=== PATIENT | female | born 1950 | race Caucasian/White ===

== ENCOUNTER 2023-06-28 12:46 | Emergency (ER) | payer MEDICARE, SELFPAY ==
[2023-06-28 12:57] VITALS: BP 140/97
[2023-06-28 13:11] LABS: % Basophils 0.8 % (0-2); % Eosinophils 2.5 % (0-6); % Immature Granulocytes 0.1 % (0-0.5); % Lymphocytes 26.5 % (20.5-51.1); % Monocytes 6.5 % (1.7-9.3); % Neutrophils 63.6 % (42.2-75.2); Absolute Basophils 0.1 10^3/uL (0-0.2); Absolute Eosinophils 0.2 10^3/uL (0-0.7); Absolute Monocytes 0.5 10^3/uL (0.1-0.6); Absolute Neutrophils 4.9 10^3/uL (1.4-6.5); Hematocrit 39.3 % (37.0-47.0); Hemoglobin 13.8 g/dL (12.0-16.0); Mean Corp Hgb Conc. 35.1 g/dL (33.0-37.0); Mean Corpuscular Hgb 30.6 pg (27.0-31.0); Mean Corpuscular Volume 87.1 fL (81.0-99.0); Mean Platelet Volume 9.2 fL (7.4-10.4); Nucleated Red Blood Cells % 0 %; Platelet Count 321 10^3/uL (130-400); Red Blood Cell Count 4.51 10^6/uL (4.20-5.40); Red Cell Dist. Width 13.2 % (11.5-14.5); White Blood Cell Count 7.7 10^3/uL (4.8-10.8)
[2023-06-28 13:12] LABS: Urine Albumin Negative (Neg - Trace); Urine Bilirubin Negative (Negative); Urine Character Clear (Clear); Urine Color Yellow; Urine Glucose Negative (Negative); Urine Ketone Negative (Negative); Urine Leukocyte 2+ (Negative); Urine Nitrite Negative (Negative); Urine Occult Blood 1+ (Negative); Urine Urobilinogen Negative (Neg - 1+)
[2023-06-28 13:28] LABS: Urine Mucus Moderate; Urine Squamous Cell >30 /LPF (Few)
[2023-06-28 13:29] LABS: Urine Urothelial Cell 16-20 /LPF (FEW)
[2023-06-28 13:30] LABS: Urine Bacteria Few (Negative)
[2023-06-28 13:39] LABS: ALT (SGPT) 33 U/L (0-35); AST (SGOT) 31 U/L (14-36); Albumin 5.1 g/dl (3.5-5.0); Alkaline Phosphatase 68 U/L (38-126); Blood Urea Nitrogen 24 mg/dl (7-17); Calcium 9.6 mg/dl (8.4-10.2); Carbon Dioxide 27 mmol/L (22-30); Chloride 103 mmol/L (98-107); Glucose 106 mg/dl (70-99); Lipase 110 U/L (23-300); Potassium 4.2 mmol/L (3.5-5.1); Sodium 137 mmol/L (135-145); Total Bilirubin 0.7 mg/dl (0.2-1.3); Total Protein 7.7 g/dl (6.3-8.2); eGFR > 60.00
--- NOTE | 2023-06-28 14:16 | ED.GENMED ---
History of Present Illness
<Gabby Escobar PA-C - Last Filed: 06/28/23 19:56>
General
Chief Complaint: Abdominal Pain
Source: patient and family
Exam Limitations: none
Time Seen by Provider: 06/28/23 14:09
Nursing documentation reviewed up to this point in time: agreed with
Travel History
Have you had any contact with someone who has COVID-19?: No
Do you have any symptoms of coronavirus? Fever > 100 degrees, chills, cough, shortness of breath, sore throat, loss of taste or smell, muscle aches, or headache?: No
History of Present Illness
History of Present Illness:
72-year-old female with a past medical history of hypertension, hyperlipidemia, presenting emergency department today with right-sided groin pain for the past 4 days. Patient states that while it started randomly. She states that the pain is
intermittent and feels like a pressure, and radiates down the right leg. She denies any numbness and tingling in the leg. Patient states that the pain is not worse with any movement of his right. Patient states is there is nothing particular that
makes the pain worse. Patient states that she has never had anything like this before. Patient states that she does have a history of tight hip flexors however she states that this feels different. Patient denies nausea, vomiting, headaches,
chest pain, shortness of breath, diarrhea. Patient denies any sick contacts. Patient denies any recent travel. Patient denies any history of kidney stones. Other than D&C in the past, patient has not had any other abdominal surgeries. Patient
denies any changes to her urinary habits.
Review of Systems
<Gabby Escobar PA-C - Last Filed: 06/28/23 19:56>
Review of Systems
All Other Systems: ROS reviewed and negative except as documented in HPI and ROS
Phy Exam
<Gabby Escobar PA-C - Last Filed: 06/28/23 19:56>
Physical Exam
Physical Exam:
Vitals: Vital signs are stable, patient is afebrile
General: Patient is well-appearing and in no acute distress
Skin: Skin is warm dry, no rashes or lesions
Cardiac: regular rate and rhythm, no murmurs
Pulm: normal respiratory effort, no wheezes, rales, or rhonchi
Abdomen: no abdominal distention, no organomegaly. mild tenderness to palpation in the RLQ extending into the right groin. No palpable lymphadenopathy, no obvious swelling.
Musculoskeletal: patient has full ROM of b/l hip and knee joints. passive range of right hip does not cause pain.
Neuro: AAOx3.
Course
<Gabby Escobar PA-C - Last Filed: 06/28/23 19:56>
Orders/Labs/Results
Orders:
Orders
06/28/23 13:06
Complete Blood Count/With Diff Urgent
Comprehensive Metabolic Panel Urgent
Lipase Urgent
Urinalysis Reflex To Culture Urgent
Date Specimen was Collected: 06/28/23
Time Specimen was Collected: 13:00
Urine Microscopic Reflex Cult Urgent
Urine Culture Urgent
ROSALINDA Source: U
Specimen Description:
Date Specimen was Collected: 06/28/23
Time Specimen was Collected: 13:00
06/28/23 14:54
CT Abd/pel Without Iv Or Oral Urgent
Comment:
Reason For Exam: right sided groin pain
06/28/23 16:46
Transvaginal US [US Pelvis W Transvag Combined] Urgent
Comment:
Reason For Exam: right ovarian mass seen on CT today
06/28/23 16:48
Ketorolac [Toradol] 15 mg IV NOW STA
06/28/23 16:50
Ibuprofen [Motrin] 400 mg PO NOW STA
06/28/23 19:14
Acetaminophen [Tylenol] 650 mg PO NOW STA
Abnormal Lab Results
06/28/23
13:06
BUN 24 H mg/dl
(7-17)
Glucose 106 H mg/dl
(70-99)
Albumin 5.1 H g/dl
(3.5-5.0)
Ur Occult Blood Reflex 1+ A
(Negative)
Leukocyte Esterase Rfl 2+ A
(Negative)
Urine RBC 3-6 A /HPF
(0-2)
Urine Bacteria (Reflex) Few A
(Negative)
06/28/23 13:06
06/28/23 13:06
Vital Signs
Initial and Last Documented VS:
Initial Vital Signs
Temp Pulse Resp BP Pulse Ox
97.7 F 101 17 140/97 97
06/28/23 12:57 06/28/23 12:57 06/28/23 12:57 06/28/23 12:57 06/28/23 12:57
Last Documented Vital Signs
Temp Pulse Resp BP Pulse Ox
98.1 F 66 16 116/77 99
06/28/23 19:08 06/28/23 19:08 06/28/23 19:08 06/28/23 19:08 06/28/23 19:08
<Rojelio Brady MD - Last Filed: 06/29/23 15:03>
Orders/Labs/Results
Orders:
Orders
06/28/23 13:06
Complete Blood Count/With Diff Urgent
Comprehensive Metabolic Panel Urgent
Lipase Urgent
Urinalysis Reflex To Culture Urgent
Date Specimen was Collected: 06/28/23
Time Specimen was Collected: 13:00
Urine Microscopic Reflex Cult Urgent
Urine Culture Urgent
ROSALINDA Source: U
Specimen Description:
Date Specimen was Collected: 06/28/23
Time Specimen was Collected: 13:00
06/28/23 14:54
CT Abd/pel Without Iv Or Oral Urgent
Comment:
Reason For Exam: right sided groin pain
06/28/23 16:46
Transvaginal US [US Pelvis W Transvag Combined] Urgent
Comment:
Reason For Exam: right ovarian mass seen on CT today
06/28/23 16:48
Ketorolac [Toradol] 15 mg IV NOW STA
06/28/23 16:50
Ibuprofen [Motrin] 400 mg PO NOW STA
06/28/23 19:14
Acetaminophen [Tylenol] 650 mg PO NOW STA
Abnormal Lab Results
06/28/23
13:06
BUN 24 H mg/dl
(7-17)
Glucose 106 H mg/dl
(70-99)
Albumin 5.1 H g/dl
(3.5-5.0)
Ur Occult Blood Reflex 1+ A
(Negative)
Leukocyte Esterase Rfl 2+ A
(Negative)
Urine RBC 3-6 A /HPF
(0-2)
Urine Bacteria (Reflex) Few A
(Negative)
06/28/23 13:06
06/28/23 13:06
Vital Signs
Initial and Last Documented VS:
Initial Vital Signs
Temp Pulse Resp BP Pulse Ox
97.7 F 101 17 140/97 97
06/28/23 12:57 06/28/23 12:57 06/28/23 12:57 06/28/23 12:57 06/28/23 12:57
Last Documented Vital Signs
Temp Pulse Resp BP Pulse Ox
98.1 F 66 16 116/77 99
06/28/23 19:08 06/28/23 19:08 06/28/23 19:08 06/28/23 19:08 06/28/23 19:08
Geminilt;Gabby Escobar PA-C - Last Filed: 06/28/23 19:56>
MDM/Problems Addressed
Differential Diagnosis Includes:
ddx include IT band syndrome, meralgia paresthetica, musculoskeletal sprain/strain, appendicitis, inguinal hernia, ovarian mass
MDM/Problems Addressed:
right sided groin pain
Chronic conditions affecting care: HTN and Other (hyperlipidemia)
Acute Exacerbation and/or Progression of Chronic Illness: HTN
<Gabby Escobar PA-C - Last Filed: 06/28/23 19:56>
*Pulse Oximetry
Patient hypoxic: no
*Critical Care Note
Total Time (30-74mins, 75-104mins- exclusive of procedures): Not Applicable
Data Reviewed
Review of Other/Old Records Reveals: Records (no previous ER visits in [facility] to review )
Source: patient, records and family
Prescriptions/Medications Considered But Not Given:
considered medication for pain control but patient comfortable at this time
<Gabby Escobar PA-C - Last Filed: 06/28/23 19:56>
Patient Management
Escalation/DeEscalation of care consider admission/obs:
72-year-old female presenting to emergency department today with atraumatic right groin pain. Patient physical exam was remarkable for some mild tenderness to palpation in the right lower abdominal quadrant, right adnexal region. Here in emergency
department, her CBC and CMP are unremarkable. Her CT scan demonstrated a right ovarian mass, ultrasound was obtained to better describe the mass. Her ultrasound demonstrated a ovoid simple cystic mass arising from the right ovary, classified as
O-RADS 2 likely benign. Spoke to Dr. Irwin, director multimedia balance wheel motion inspector via tiger text, who is okay with outpatient follow up with her OBGYN with no acute intervention necessary. Patient has [facility] [employer] apt on july 16.
ED Attending Note
<Gabby Escobar PA-C - Last Filed: 06/28/23 19:56>
-
Portions of this chart may have been created with voice recognition software.� Occasional wrong word or��sound alike� substitutions may have occurred due to the inherent limitations of voice recognition software.
<Rojleio Brady MD - Last Filed: 06/29/23 15:03>
ED Attending Note
Patient seen and examined by attending physician: Yes
ED Attending Note:
Patient presents to ED secondary to intermittent right lower abdominal pain over the past 4 days. Patient has taken ibuprofen as well as warm compress application, with intermittent relief in symptoms. Denies fever or chills. Denies nausea,
vomiting, or diarrhea. Denies trauma. Denies recent change in level activities. Patient does report having chronic back pain, for which she participates in online yoga exercises.
Physical Exam
General: mild painful distress, not acutely ill. afebrile
Head: nc/at. eomi
Neck: supple. no meningeal signs.
Abdomen: normal bowel sounds. not tender. mild right groin tenderness to palpation. no distention.
Neuro: alert and oriented. no focal neurological deficits
Skin: no rash
Psychiatric: well kept. interactive and cooperative
Extremities: no edema. no calf tenderness
CT report reviewed. Will obtain pelvic US and reassess.
CT/pelvic US report discussed with oncall distance learning program coordinator physician, . Pt will f/u with her primary distance learning program coordinator physician as outpatient. No acute intervention advised at this time.
Discharge Plan
Departure
Patient Disposition: Home (Routine Discharge)
Date of Disposition: 06/28/23
Time of Disposition: 19:47
Patient with high blood pressure during this ER visit?: Yes
Condition: Good
Discharge Problem:
Ovarian mass, right
Instructions: Pelvic Pain (DC), BLOOD PRESSURE
Prescriptions:
No Action
multivitamin Tablet
1 tab PO DAILY
amlodipine 5 mg Tablet
5 mg PO DAILY
olmesartan 20 mg Tablet
20 mg PO DAILY
rosuvastatin [Crestor] 10 mg Tablet
10 mg PO DAILY
Probiotic 3 billion cell Capsule
3,000 mmu cells PO DAILY
Referrals:
Dawit Kumar MD [Family Provider] -
Activity Restrictions/Additional Instructions:
Please keep your OBGYN appointment on July 16 for follow up.
Please alternate Tylenol and Motrin for pain control. Continue use of your heating pad.
Please return to the emergency department for any concerns.
Interventions
Interventions:
*Risk Screen - Suicide Last Done: 06/28/23 12:59
*General Assessment Last Done: 06/28/23 12:59
*Neglect/Abuse Screening Last Done: 06/28/23 12:59
ED- Fall Risk Assessment Last Done: 06/28/23 18:26
*ED COVID-19 Vaccine History Last Done: 06/28/23 12:59
*Nursing Disposition Last Done: 06/28/23 20:14
PK-Nuspew-Jgonilhmfq Assessment Last Done: 06/28/23 19:08
Discharge Date and Time
Discharge Date/Time: 06/28/23 20:14
[2023-06-28] MEDS: MOTRIN 400 MG PO (16:54)
[2023-06-28 17:34] VITALS: BMI 25.3
[2023-06-28 18:26] VITALS: BP 136/81
[2023-06-28 19:08] VITALS: BP 116/77
[2023-06-28] MEDS: TYLENOL 650 MG PO (19:28)
== END 2023-06-28 20:14 | disposition home or self-care (01) ==
LOC: EMR 12:46
PROVIDERS: Emergency Medicine; EMERGENCY PHYSICIAN Emergency Medicine; FAMILY PHYSICIAN Family Medicine
DX: N83.291 Other ovarian cyst, right side (principal); E78.49 Other hyperlipidemia; I10 Essential (primary) hypertension
CPT/HCPCS: 99285; 74176; 76830; 76856; 80053; 81003; 81015; 83690; 85025; 87086

== ENCOUNTER → 2023-07-23 08:24 | Outpatient (REF) | payer MEDICARE, SELFPAY | LOC: HWRAD 08:24 | PROVIDERS: ATTENDING PHYSICIAN Family Medicine | DX: M85.89 Other specified disorders of bone density and structure, multiple sites (principal) | CPT/HCPCS: 77080 ==

== ENCOUNTER → 2023-07-28 07:57 | Outpatient (REF) | payer MEDICARE, SELFPAY | LOC: HWRCS 07:57 | PROVIDERS: ATTENDING PHYSICIAN Family Medicine | DX: G43.809 Other migraine, not intractable, without status migrainosus (principal) | CPT/HCPCS: 93306 ==

== ENCOUNTER → 2023-08-06 14:52 | Outpatient (REF) | payer MEDICARE, SELFPAY | LOC: WDC 14:52 | PROVIDERS: ATTENDING PHYSICIAN Obstetrics & Gynecology; FAMILY PHYSICIAN Family Medicine | DX: Z12.31 Encounter for screening mammogram for malignant neoplasm of breast (principal) | CPT/HCPCS: 77063; 77067 ==

== ENCOUNTER → 2023-09-09 08:44 | Outpatient (REF) | payer MEDICARE, SELFPAY | LOC: RAD 08:44 | PROVIDERS: ATTENDING PHYSICIAN Family Medicine | DX: G43.809 Other migraine, not intractable, without status migrainosus (principal); G45.9 Transient cerebral ischemic attack, unspecified | CPT/HCPCS: 93880 ==

== ENCOUNTER → 2023-11-04 07:52 | Outpatient (REF) | payer MEDICARE, SELFPAY | LOC: WDC 07:52 | PROVIDERS: ATTENDING PHYSICIAN Obstetrics & Gynecology; FAMILY PHYSICIAN Family Medicine | DX: R92.2 Inconclusive mammogram (principal); R92.343 Mammographic extreme density, bilateral breasts | CPT/HCPCS: 76641; 93005 ==

== ENCOUNTER → 2024-01-18 10:13 | Outpatient (REF) | payer MEDICARE, SELFPAY | LOC: RAD 10:13 | PROVIDERS: ATTENDING PHYSICIAN Internal Medicine Gastroenterology; FAMILY PHYSICIAN Family Medicine | DX: R11.10 Vomiting, unspecified (principal) | CPT/HCPCS: 74246 ==

== ENCOUNTER → 2024-02-08 09:04 | Outpatient (REF) | payer MEDICARE, SELFPAY | LOC: HWRAD 09:04 | PROVIDERS: ATTENDING PHYSICIAN Obstetrics & Gynecology; FAMILY PHYSICIAN Family Medicine | DX: N83.209 Unspecified ovarian cyst, unspecified side (principal) | CPT/HCPCS: 76830; 76856 ==

== ENCOUNTER → 2024-02-25 06:19 | Day surgery (SDC) | payer MEDICARE, SELFPAY | LOC: GI 06:19 | PROVIDERS: ATTENDING PHYSICIAN Internal Medicine Gastroenterology | DX: Z12.11 Encounter for screening for malignant neoplasm of colon (principal); K57.30 Diverticulosis of large intestine without perforation or abscess without bleeding; Q43.8 Other specified congenital malformations of intestine; K56.2 Volvulus; Z86.0101 Personal history of adenomatous and serrated colon polyps; Z15.09 Genetic susceptibility to other malignant neoplasm | CPT/HCPCS: G0105 ==

== ENCOUNTER → 2024-05-10 07:42 | Outpatient (REF) | payer MEDICARE, SELFPAY | LOC: EMG 07:42 | PROVIDERS: ATTENDING PHYSICIAN Orthopaedic Surgery; FAMILY PHYSICIAN Family Medicine | DX: R20.0 Anesthesia of skin (principal) | CPT/HCPCS: 95886; 95909 ==

== ENCOUNTER → 2024-05-11 08:12 | Outpatient (REF) | payer MEDICARE, SELFPAY | LOC: HWRAD 08:12 | PROVIDERS: ATTENDING PHYSICIAN Obstetrics & Gynecology; FAMILY PHYSICIAN Family Medicine | DX: N83.292 Other ovarian cyst, left side (principal) | CPT/HCPCS: 76830; 76856 ==

== ENCOUNTER → 2024-08-03 08:44 | Outpatient (REF) | payer MEDICARE, SELFPAY | LOC: HWWDC 08:44 | PROVIDERS: ATTENDING PHYSICIAN Obstetrics & Gynecology; FAMILY PHYSICIAN Family Medicine | DX: Z12.31 Encounter for screening mammogram for malignant neoplasm of breast (principal) | CPT/HCPCS: 77063; 77067 ==

== ENCOUNTER → 2024-11-21 12:45 | Outpatient (REF) | payer MEDICARE, SELFPAY | LOC: WDC 12:45 | PROVIDERS: ATTENDING PHYSICIAN Obstetrics & Gynecology; FAMILY PHYSICIAN Family Medicine | DX: R92.333 Mammographic heterogeneous density, bilateral breasts (principal) | CPT/HCPCS: 76641 ==